=== PATIENT | male | born 1950 | race Caucasian/White ===

== ENCOUNTER 2023-09-10 13:57 | Outpatient (RCR) | payer OTHER, SELFPAY | END 2023-10-06 12:57 | disposition home or self-care (01) | LOC: PT 13:57 | PROVIDERS: PCP Family Medicine; Visit Provider Student in an Organized Health Care Education/Training Program | DX: M54.50 Low back pain, unspecified (principal) | CPT/HCPCS: 97010; 97110; 97140; 97162; G0283 ==